=== PATIENT | female | born 1955 | race Caucasian/White ===

== ENCOUNTER 2019-12-24 16:33 | Emergency (ER) | payer MEDICARE ==
[~2019-12-24] VITALS: Ht 142.2 cm; Wt 61.2 kg
[2019-12-24] MEDS ORDERED: AMLO5 PO (17:03)
[2019-12-24] MEDS ORDERED: OMEP20ER PO (17:03)
[2019-12-24] MEDS ORDERED: ATOR20 PO (17:03)
[2019-12-24] MEDS ORDERED: Prozac20 MG (17:04)
[2019-12-24] MEDS ORDERED: [UNRECOGNIZED DRUG - OTHER] (17:04)
[2019-12-24] MEDS ORDERED: LOSA50 PO (17:04)
[2019-12-24] MEDS ORDERED: Cranberry400 MG PO (17:05)
[2019-12-24] MEDS ORDERED: CALCIUM 600 +1 EA11 PO (17:05)
[2019-12-24] MEDS ORDERED: SUMA25 PO (17:05)
[2019-12-24] MEDS ORDERED: Vitamin and Mi1 EACH (17:06)
[2019-12-24] MEDS ORDERED: BENADRYL25 MG PO (17:18)
[2019-12-30] MEDS ORDERED: Prednisone20 MG PO (15:17)
== END 2019-12-24 17:42 | disposition home or self-care (01) ==
LOC: ER 16:33
DX: L50.9 Urticaria, unspecified (principal); Z88.5 Allergy status to narcotic agent; Z91.040 Latex allergy status; Z88.2 Allergy status to sulfonamides; Z88.8 Allergy status to other drugs, medicaments and biological substances; I10 Essential (primary) hypertension
CPT/HCPCS: 99282; J1100; Q0163

== ENCOUNTER 2020-03-21 10:13 | Emergency (ER) | payer MEDICARE ==
[~2020-03-21] VITALS: Ht 142.2 cm; Wt 64.0 kg
[~2020-03-21 10:13] MED LIST: AMLO5 PO; ATOR20 PO; BENADRYL25 MG PO; CALCIUM 600 +1 EA11 PO; Cranberry400 MG PO; LOSA50 PO; OMEP20ER PO; Prednisone20 MG PO; Prozac20 MG; SUMA25 PO; Vitamin and Mi1 EACH; [UNRECOGNIZED DRUG - OTHER]
[2020-03-21 11:19] LABS: BASOPHILS ABSOLUTE AUTO 0.01 K/mm3 (0.00-0.23); BASOPHILS PERCENT AUTO 0 % (0-2); EOSINOPHILS ABSOLUTE AUTO 0.33 K/mm3 (0.00-0.68); EOSINOPHILS PERCENT AUTO 6 % (0-6); Hematocrit 37.1 % (33.0-51.0); Hemoglobin 11.8 g/dL (11.5-16.0); IMMATURE GRAN ABSOLUTE AUTO 0.01 K/mm3 (0.00-0.10); IMMATURE GRAN PERCENT AUTO 0 % (0-1); LYMPHOCYTES ABSOLUTE AUTO 1.27 K/mm3 (0.84-5.20); LYMPHOCYTES PERCENT AUTO 23 % (21-46); MONOCYTES ABSOLUTE AUTO 0.37 K/mm3 (0.16-1.47); MONOCYTES PERCENT AUTO 7 % (4-13); Mean Corpuscular HGB 28.2 pg (26.0-34.0); Mean Corpuscular HGB Conc 31.8 g/dL (31.5-36.5); Mean Corpuscular Volume 89 fL (80-100); Mean Platelet Volume 10.3 fL (9.1-12.4); NEUTROPHILS ABSOLUTE AUTO 3.55 K/mm3 (1.96-9.15); NEUTROPHILS PERCENT AUTO 64 % (41-73); Platelet Count 229 K/mm3 (150-400); RDW Coefficient Variation 14.6 % (11.7-14.2); Red Blood Cell Count 4.19 M/mm3 (3.80-5.20); White Blood Cell Count 5.54 K/mm3 (4.00-11.30)
[2020-03-21 11:42] LABS: Alanine Aminotransfer (ALT/SGP 30 U/L (12-78); Albumin, Blood 3.4 g/dL (3.4-5.0); Alk Phos 95 U/L (50-136); Anion Gap 6 mmol/L (6-16); Aspartate Aminotrans (AST/SGOT 28 U/L (12-37); Bilirubin, Total 0.3 mg/dL (0.1-1.0); Blood Urea Nitrogen 16 mg/dL (8-24); Bun/Creatinine Ratio 24.4 (12.0-20.0); CO2, Blood 27 mmol/L (21-32); Calcium, Blood 8.9 mg/dL (8.5-10.1); Chloride, Blood 108 mmol/L (98-108); Creatinine, Blood 0.66 mg/dL (0.40-1.00); Globulin, Blood 3.3 g/dL (2.2-4.0); Glomerular Filtration Rate >60 (60-); Glucose, Blood 88 mg/dL (70-99); Potassium, Blood 4.1 mmol/L (3.5-5.5); Sodium, Blood 141 mmol/L (136-145); Total Protein, Blood 6.7 g/dL (6.4-8.2); Troponin I <0.015 ng/mL (0.000-0.040)
[2020-03-21] MEDS ORDERED: PRED20 PO (12:45)
[2020-03-21 13:20] LABS: Adenovirus Not Detected (NOT DETECT); Bordetella pertussis Not Detected (NOT DETECT); Chlamydophila pneumoniae Not Detected (NOT DETECT); Coronavirus 229E Not Detected (NOT DETECT); Coronavirus HKU1 Not Detected (NOT DETECT); Coronavirus NL63 Not Detected (NOT DETECT); Coronavirus OC43 Not Detected (NOT DETECT); Human Metapneumovirus Not Detected (NOT DETECT); Human Rhinovirus/Enterovirus Detected (NOT DETECT); Influenza A/2009-H1 Not Detected (NOT DETECT); Influenza A/H1 Not Detected (NOT DETECT); Influenza A/H3 Not Detected (NOT DETECT); Influenza B Not Detected (NOT DETECT); Mycoplasma pneumoniae Not Detected (NOT DETECT); Parainfluenza Virus 1 Not Detected (NOT DETECT); Parainfluenza Virus 2 Not Detected (NOT DETECT); Parainfluenza Virus 3 Not Detected (NOT DETECT); Parainfluenza Virus 4 Not Detected (NOT DETECT); Respiratory Syncytial Virus Not Detected (NOT DETECT); SARS-Cov-2 (COVID-19), BioFire Not Detected (NOT DETECT)
== END 2020-03-21 13:07 | disposition home or self-care (01) ==
LOC: ER 10:13
PROVIDERS: Emergency Medicine; Physician Assistant
DX: J45.909 Unspecified asthma, uncomplicated (principal); R04.2 Hemoptysis; I10 Essential (primary) hypertension; Z88.5 Allergy status to narcotic agent; Z88.2 Allergy status to sulfonamides; Z88.8 Allergy status to other drugs, medicaments and biological substances; Z79.52 Long term (current) use of systemic steroids; Z91.040 Latex allergy status; Z79.899 Other long term (current) drug therapy; Z20.828 Contact with and (suspected) exposure to other viral communicable diseases
CPT/HCPCS: 0202U; 36415; 71045; 80053; 83880; 84484; 85025; 93005; 93010; 99284-25; J7512

== ENCOUNTER → 2021-10-25 | Outpatient (CLI) | payer OTHER ==
[~2021-10-25] MED LIST changes: +PRED20 PO
[2021-10-25 17:08] LABS: BASOPHILS ABSOLUTE AUTO 0.02 K/mm3 (0.00-0.23); BASOPHILS PERCENT AUTO 0 % (0-2); EOSINOPHILS PERCENT AUTO 3 % (0-6); Hematocrit 36.1 % (33.0-51.0); Hemoglobin 11.7 g/dL (11.5-16.0); IMMATURE GRAN ABSOLUTE AUTO 0.02 K/mm3 (0.00-0.10); IMMATURE GRAN PERCENT AUTO 0 % (0-1); LYMPHOCYTES ABSOLUTE AUTO 1.61 K/mm3 (0.84-5.20); LYMPHOCYTES PERCENT AUTO 22 % (21-46); MONOCYTES ABSOLUTE AUTO 0.54 K/mm3 (0.16-1.47); MONOCYTES PERCENT AUTO 7 % (4-13); Mean Corpuscular HGB 28.6 pg (26.0-34.0); Mean Corpuscular HGB Conc 32.4 g/dL (31.5-36.5); Mean Corpuscular Volume 88 fL (80-100); Mean Platelet Volume 10.8 fL (9.1-12.4); NEUTROPHILS ABSOLUTE AUTO 4.91 K/mm3 (1.96-9.15); NEUTROPHILS PERCENT AUTO 67 % (41-73); Platelet Count 233 K/mm3 (150-400); RDW Coefficient Variation 14.2 % (11.7-14.2); RDW Standard Deviation 45.3 fL (35.1-46.3); Red Blood Cell Count 4.09 M/mm3 (3.80-5.20)
[2021-10-25 17:17] LABS: Albumin, Blood 3.5 g/dL (3.4-5.0); Bilirubin, Total 0.3 mg/dL (0.1-1.0); Bun/Creatinine Ratio 19.8 (12.0-20.0); Calcium, Blood 8.7 mg/dL (8.5-10.1); Creatinine, Blood 0.91 mg/dL (0.40-1.00); Globulin, Blood 3.4 g/dL (2.2-4.0); Potassium, Blood 4.3 mmol/L (3.5-5.5); Total Protein, Blood 6.9 g/dL (6.4-8.2)
== END | disposition home or self-care (01) ==
LOC: LAB SHORT 17:02 → LAB 17:02
PROVIDERS: Physician Assistant Surgical
DX: R42 Dizziness and giddiness (principal)
CPT/HCPCS: 80053; 85025

== ENCOUNTER 2022-09-04 00:36 | Day surgery (SDC) | payer OTHER | END 2022-09-04 22:57 | disposition home or self-care (01) | LOC: WOUND 00:36 | DX: L25.9 Unspecified contact dermatitis, unspecified cause (principal); L20.9 Atopic dermatitis, unspecified; S81.802D Unspecified open wound, left lower leg, subsequent encounter; X58.XXXD Exposure to other specified factors, subsequent encounter; J44.9 Chronic obstructive pulmonary disease, unspecified; G47.30 Sleep apnea, unspecified; I95.9 Hypotension, unspecified | CPT/HCPCS: A9270; G0463 ==

== ENCOUNTER 2022-09-11 03:33 | Day surgery (SDC) | payer OTHER | END 2022-09-11 22:54 | disposition home or self-care (01) | LOC: WOUND 03:33 | DX: S81.802D Unspecified open wound, left lower leg, subsequent encounter (principal); X58.XXXD Exposure to other specified factors, subsequent encounter; L20.9 Atopic dermatitis, unspecified; L25.9 Unspecified contact dermatitis, unspecified cause | CPT/HCPCS: A9270; G0463 ==

== ENCOUNTER 2022-09-18 02:14 | Day surgery (SDC) | payer OTHER | END 2022-09-18 22:57 | disposition home or self-care (01) | LOC: WOUND 02:14 | DX: S81.802D Unspecified open wound, left lower leg, subsequent encounter (principal); X58.XXXD Exposure to other specified factors, subsequent encounter; L20.9 Atopic dermatitis, unspecified; L25.9 Unspecified contact dermatitis, unspecified cause | CPT/HCPCS: G0463 ==

== ENCOUNTER 2022-10-13 12:35 | Emergency (ER) | payer OTHER ==
[~2022-10-13] VITALS: Ht 142.2 cm; Wt 61.7 kg
[2022-10-13 12:50] VITALS: BP 128/75
[2022-10-13 13:46] LABS: Influenza A, PCR NEGATIVE (NEGATIVE); Influenza B, PCR NEGATIVE (NEGATIVE); Resp Syncytial Virus, PCR NEGATIVE (NEGATIVE); SARS-Cov-2 (COVID-19) PCR, MMC NEGATIVE (NEGATIVE)
== END 2022-10-13 14:17 | disposition home or self-care (01) ==
LOC: ER 12:35
PROVIDERS: Student in an Organized Health Care Education/Training Program
DX: J06.9 Acute upper respiratory infection, unspecified (principal); I10 Essential (primary) hypertension; J44.9 Chronic obstructive pulmonary disease, unspecified; Z79.52 Long term (current) use of systemic steroids; Z88.5 Allergy status to narcotic agent; Z91.040 Latex allergy status; Z88.8 Allergy status to other drugs, medicaments and biological substances; Z79.899 Other long term (current) drug therapy; Z20.822 Contact with and (suspected) exposure to COVID-19
CPT/HCPCS: 0241U; 71045; 99283-25

== ENCOUNTER 2022-11-26 09:11 | Emergency (ER) | payer OTHER ==
[~2022-11-26] VITALS: Ht 142.2 cm; Wt 61.2 kg
[~2022-11-26 09:11] MED LIST changes: -LOSA50 PO; +LOSARTAN POTAS100 M1 PO; -Prozac20 MG; +Prozac20 MG PO
[2022-11-26 09:15] VITALS: BP 124/65
[2022-11-26] MEDS ORDERED: DRAMAMINE25 M3 PO (09:56)
[2022-11-26] MEDS ORDERED: Zithromax250 MG PO (10:39)
[2022-11-26] MEDS ORDERED: Prednisone20 MG PO (10:39)
== END 2022-11-26 10:53 | disposition home or self-care (01) ==
LOC: ER 09:11
DX: J44.1 Chronic obstructive pulmonary disease with (acute) exacerbation (principal); I10 Essential (primary) hypertension; Z88.5 Allergy status to narcotic agent; Z91.040 Latex allergy status; Z88.8 Allergy status to other drugs, medicaments and biological substances; Z79.899 Other long term (current) drug therapy
CPT/HCPCS: J7512

== ENCOUNTER 2023-01-24 15:38 | Emergency (ER) | payer OTHER ==
[~2023-01-24] VITALS: Ht 142.2 cm; Wt 63.0 kg
[~2023-01-24 15:38] MED LIST changes: +DRAMAMINE25 M3 PO; +Zithromax250 MG PO
[2023-01-24 16:25] LABS: BASOPHILS ABSOLUTE AUTO 0.02 K/mm3 (0.00-0.23); BASOPHILS PERCENT AUTO 0 % (0-2); EOSINOPHILS ABSOLUTE AUTO 0.15 K/mm3 (0.00-0.68); EOSINOPHILS PERCENT AUTO 3 % (0-6); Hematocrit 35.1 % (33.0-51.0); Hemoglobin 11.7 g/dL (11.5-16.0); IMMATURE GRAN ABSOLUTE AUTO 0.01 K/mm3 (0.00-0.10); IMMATURE GRAN PERCENT AUTO 0 % (0-1); LYMPHOCYTES ABSOLUTE AUTO 1.41 K/mm3 (0.84-5.20); LYMPHOCYTES PERCENT AUTO 24 % (21-46); MONOCYTES ABSOLUTE AUTO 0.32 K/mm3 (0.16-1.47); MONOCYTES PERCENT AUTO 6 % (4-13); Mean Corpuscular HGB 29.1 pg (26.0-34.0); Mean Corpuscular HGB Conc 33.3 g/dL (31.5-36.5); Mean Corpuscular Volume 87 fL (80-100); NEUTROPHILS ABSOLUTE AUTO 3.91 K/mm3 (1.96-9.15); NEUTROPHILS PERCENT AUTO 67 % (41-73); Platelet Count 223 K/mm3 (150-400); RDW Coefficient Variation 12.7 % (11.7-14.2); RDW Standard Deviation 40.9 fL (35.1-46.3); Red Blood Cell Count 4.02 M/mm3 (3.80-5.20); White Blood Cell Count 5.82 K/mm3 (4.00-11.30)
[2023-01-24 16:41] LABS: Albumin, Blood 3.6 g/dL (3.4-5.0); Albumin/Globulin Ratio 1.1 (0.8-1.8); Bilirubin, Total 0.3 mg/dL (0.1-1.0); Bun/Creatinine Ratio 25.1 (12.0-20.0); Calcium, Blood 8.9 mg/dL (8.5-10.1); Creatinine, Blood 0.68 mg/dL (0.40-1.00); Globulin, Blood 3.2 g/dL (2.2-4.0); Potassium, Blood 3.8 mmol/L (3.5-5.5); Total Protein, Blood 6.8 g/dL (6.4-8.2)
[2023-01-24 19:10] VITALS: BP 129/84
== END 2023-01-24 20:34 | disposition home or self-care (01) ==
LOC: ER 15:38
PROVIDERS: Physician Assistant
DX: R07.2 Precordial pain (principal); J44.9 Chronic obstructive pulmonary disease, unspecified; I10 Essential (primary) hypertension; K21.9 Gastro-esophageal reflux disease without esophagitis; Z88.5 Allergy status to narcotic agent; Z91.040 Latex allergy status; Z88.2 Allergy status to sulfonamides; Z79.52 Long term (current) use of systemic steroids; Z79.899 Other long term (current) drug therapy
CPT/HCPCS: 71046; 80053; 83880; 84484; 85025; 93005; 93010; 99285-25; A9270

== ENCOUNTER 2023-12-03 08:59 | Day surgery (SDC) | payer OTHER ==
[~2023-12-03] VITALS: Ht 142.2 cm; Wt 63.5 kg
[~2023-12-03 08:59] MED LIST changes: +EPINEPhrine HCl 1 MG / ML 30ML Vial ONE; +Lactated Ringer's 1,000 ML IV ONE
[2023-12-03] MEDS ORDERED: propofoL 20 ML IV ONE (09:41)
[2023-12-03] MEDS ORDERED: Midazolam HCl 1MG / ML 2ML Vial ONE (09:41)
[2023-12-03] MEDS ORDERED: FentaNYL Citrate 50 MCG/ML 2 ML Injection ONE (09:41)
[2023-12-03] MEDS ORDERED: Lactated Ringer's 1,000 ML IV ONE (10:19)
[2023-12-03] MEDS ORDERED: Dexamethasone Sod Phos 10 MG/ML 1ML VIAL ONE (11:23)
[2023-12-03] MEDS ORDERED: Ondansetron HCl 2 MG / ML 2ML Vial ONE (11:23)
[2023-12-03] MEDS ORDERED: Lidocaine 1%-Epineph 1:100000 20 ML MDV INJ ONE ×2 (11:34)
[2023-12-03] MEDS ORDERED: ePHEDrine Sulfate 50 MG/ML 1ML Injection ONE (11:48)
[2023-12-03] MEDS ORDERED: Phenylephrine HCl 100 MCG/ML-NS 10MLSYR (1MG/10ML) ONE (11:48)
[2023-12-03] MEDS ORDERED: Ketorolac Tromethamine 30mg Vial ONE (12:32)
[2023-12-03] MEDS ORDERED: Sugammadex Sodium 200 MG/2ML SDV (100 MG/ML) ONE (12:32)
[2023-12-03] MEDS ORDERED: Rocuronium Bromide 10 MG/ML 5ML Injection IV ONE (12:32)
--- NOTE | 2023-12-03 12:52 | NUR ---
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 MULTIPLE WARM BLANKETS PLACED ON HER BUT CONTINUED NOTED SHIVERING. 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
[2023-12-03 13:31] VITALS: BP 110/66
--- NOTE | 2023-12-03 13:38 | NUR ---
12/03/23 1338 CELESTE MAYER TO DENY PAIN AND NAUSEA. LUNGS CLEAR.
== END 2023-12-03 14:30 | disposition home or self-care (01) ==
LOC: ORSCSDS 08:59
PROVIDERS: Otolaryngology
PROC: 09BM0ZZ Excision of Nasal Septum, Open Approach (ICD-10-PCS; principal; 2023-12-03 11:00)
PROC: 09SL0ZZ Reposition Nasal Turbinate, Open Approach (ICD-10-PCS; principal; 2023-12-03 11:00)
DX: J34.2 Deviated nasal septum (principal); J34.3 Hypertrophy of nasal turbinates; I10 Essential (primary) hypertension; E78.5 Hyperlipidemia, unspecified; J44.9 Chronic obstructive pulmonary disease, unspecified; G47.33 Obstructive sleep apnea (adult) (pediatric); K21.9 Gastro-esophageal reflux disease without esophagitis; Z79.899 Other long term (current) drug therapy
CPT/HCPCS: J0171; J1100; J1885; J2250; J2371; J2405; J2704; J3010; J7120

== ENCOUNTER 2024-10-08 17:08 | Emergency (ER) | payer OTHER ==
[~2024-10-08] VITALS: Ht 165.1 cm; Wt 68.0 kg
[~2024-10-08 17:08] MED LIST changes: -EPINEPhrine HCl 1 MG / ML 30ML Vial ONE; -Lactated Ringer's 1,000 ML IV ONE
[2024-10-08 17:56] VITALS: BP 128/67
[2024-10-08 19:15] LABS: Influenza A, PCR NEGATIVE (NEGATIVE); Influenza B, PCR NEGATIVE (NEGATIVE); Resp Syncytial Virus, PCR NEGATIVE (NEGATIVE); SARS-Cov-2 (COVID-19) PCR, MMC NEGATIVE (NEGATIVE)
[2024-10-08] MEDS ORDERED: Ketorolac Tromethamine 15mg Vial IV ONE (20:00)
== END 2024-10-08 20:10 | disposition home or self-care (01) ==
LOC: ER 17:08
PROVIDERS: Student in an Organized Health Care Education/Training Program
DX: G43.909 Migraine, unspecified, not intractable, without status migrainosus (principal); I83.92 Asymptomatic varicose veins of left lower extremity; Z88.0 Allergy status to penicillin; Z88.5 Allergy status to narcotic agent; Z91.040 Latex allergy status; Z88.2 Allergy status to sulfonamides; Z79.899 Other long term (current) drug therapy
CPT/HCPCS: 0241U; 93971; 96374; 99283-25; J1885

== ENCOUNTER 2024-10-25 02:35 | Emergency (ER) | payer SELFPAY ==
[~2024-10-25] VITALS: Ht 142.2 cm; Wt 59.0 kg
[2024-10-25] MEDS ORDERED: Acetaminophen 500 MG Tab PO ONE (02:45)
[2024-10-25] MEDS ORDERED: Prochlorperazine Edisylate 10 mg Vial IV ONE (02:45)
[2024-10-25] MEDS ORDERED: NS 1,000 ML IV SCH (02:45)
[2024-10-25] MEDS ORDERED: DiphenhydrAMINE HCl 50 MG/ML 1ML Vial IV ONE (02:45)
[2024-10-25] MEDS ORDERED: Ketorolac Tromethamine 15mg Vial IV ONE (02:45)
[2024-10-25 05:00] VITALS: BP 131/72
== END 2024-10-25 05:29 | disposition home or self-care (01) ==
LOC: ER 02:35
DX: G43.909 Migraine, unspecified, not intractable, without status migrainosus (principal); J44.89 Other specified chronic obstructive pulmonary disease; I10 Essential (primary) hypertension; G47.33 Obstructive sleep apnea (adult) (pediatric); Z88.0 Allergy status to penicillin; Z88.5 Allergy status to narcotic agent; Z91.040 Latex allergy status; Z88.2 Allergy status to sulfonamides; Z88.1 Allergy status to other antibiotic agents; Z79.899 Other long term (current) drug therapy
CPT/HCPCS: 96374; 96375; 99283-25; J0780; J1200; J1885; J7030

== ENCOUNTER 2025-01-31 16:06 | Emergency (ER) | payer MEDICARE ==
[~2025-01-31] VITALS: Ht 142.2 cm; Wt 63.5 kg
[2025-01-31 18:11] VITALS: BP 125/77
== END 2025-01-31 18:30 | disposition home or self-care (01) ==
LOC: ER 16:06
DX: R51.9 Headache, unspecified (principal); M25.561 Pain in right knee; J44.89 Other specified chronic obstructive pulmonary disease; G47.33 Obstructive sleep apnea (adult) (pediatric); I10 Essential (primary) hypertension; S60.222A Contusion of left hand, initial encounter; M18.12 Unilateral primary osteoarthritis of first carpometacarpal joint, left hand; Z88.0 Allergy status to penicillin; Z88.5 Allergy status to narcotic agent; Z91.040 Latex allergy status; Z88.2 Allergy status to sulfonamides; Z88.1 Allergy status to other antibiotic agents; Z79.899 Other long term (current) drug therapy; Z91.81 History of falling
CPT/HCPCS: 70450; 73130; 99284-25

== ENCOUNTER 2025-02-05 17:28 | Emergency (ER) | payer MEDICARE ==
[~2025-02-05] VITALS: Ht 142.2 cm; Wt 63.5 kg
[2025-02-05 17:35] VITALS: BP 130/87
[2025-02-05] MEDS ORDERED: Ketorolac Tromethamine 15mg Vial IM ONE (19:55)
[2025-02-05] MEDS ORDERED: RX Prepack 6 Tabs Oxycodone 5mg UD ONE (19:55)
== END 2025-02-05 20:28 | disposition home or self-care (01) ==
LOC: ER 17:28
DX: R07.81 Pleurodynia (principal); Z79.51 Long term (current) use of inhaled steroids; Z79.899 Other long term (current) drug therapy; Z88.0 Allergy status to penicillin; Z88.5 Allergy status to narcotic agent; Z91.040 Latex allergy status; Z88.1 Allergy status to other antibiotic agents
CPT/HCPCS: 71101; 96372; 99283-25; A9270; J1885

== ENCOUNTER 2025-02-24 14:37 | Emergency (ER) | payer MEDICARE ==
[~2025-02-24] VITALS: Ht 144.8 cm; Wt 63.7 kg
[2025-02-24 14:52] VITALS: BP 171/104
[2025-02-24] MEDS ORDERED: Ketorolac Tromethamine 30mg Vial IM ONE (16:40)
[2025-02-24] MEDS ORDERED: Dexamethasone Sod Phos 10 MG/ML 1ML VIAL PO ONE (16:40)
== END 2025-02-24 18:05 | disposition home or self-care (01) ==
LOC: ER 14:37
DX: S00.83XA Contusion of other part of head, initial encounter (principal); J44.9 Chronic obstructive pulmonary disease, unspecified; I10 Essential (primary) hypertension; G47.33 Obstructive sleep apnea (adult) (pediatric); Z88.0 Allergy status to penicillin; Z88.5 Allergy status to narcotic agent; Z91.040 Latex allergy status; Z88.2 Allergy status to sulfonamides; Z79.899 Other long term (current) drug therapy; W18.30XA Fall on same level, unspecified, initial encounter
CPT/HCPCS: 70450; 72125; 96372; 99284-25; J1100; J1885

== ENCOUNTER 2025-03-18 01:15 | Emergency (ER) | payer MEDICARE ==
[~2025-03-18] VITALS: Ht 157.5 cm; Wt 54.4 kg
[2025-03-18] MEDS ORDERED: LORA10ER PO (01:20)
[2025-03-18] MEDS ORDERED: Ketorolac Tromethamine 15mg Vial IV ONE (01:45)
[2025-03-18] MEDS ORDERED: Metoclopramide HCl 5MG / ML 2ML Vial IV ONE (01:45)
[2025-03-18] MEDS ORDERED: DiphenhydrAMINE HCl 50 MG/ML 1ML Vial IV ONE (01:45)
[2025-03-18 03:15] VITALS: BP 161/95
== END 2025-03-18 03:50 | disposition home or self-care (01) ==
LOC: ER 01:15
DX: R51.9 Headache, unspecified (principal); J44.89 Other specified chronic obstructive pulmonary disease; I10 Essential (primary) hypertension; Z79.51 Long term (current) use of inhaled steroids; Z79.899 Other long term (current) drug therapy; Z88.0 Allergy status to penicillin; Z88.5 Allergy status to narcotic agent; Z91.040 Latex allergy status; Z88.1 Allergy status to other antibiotic agents
CPT/HCPCS: 96374; 96375; 99283-25; J1200; J1885; J2765; J7120